=== PATIENT | female | born 1990 | race Caucasian/White ===

== ENCOUNTER → 2017-09-05 | Outpatient (CLI) | payer BC ==
[~2017-09-05] MED LIST: AMPH5CAP9 PO; BUPR300T55 PO; CITA-156 PO; CLO5 PO; CLON-388 PO; DIA10 PO; FLUO40CA76 PO; HYDR-3074 PO; IBUP-1618 PO; IBUP800T37 PO; LEVE500 PO; LIOT5TAB18 PO; LITH300T18 PO; LITH600C6 PO; LOR05 PO; LOR5/325 PO; LURA20TA PO; MIR15 PO; NORG1TAB76 PO; ONDA4TAB PO; QUE100 PO; VEN75XR PO; VENL75CA58 PO; [UNRECOGNIZED DRUG - OTHER] PO
== END ==
LOC: LAB 15:16
PROVIDERS: ATTEND Nurse Practitioner Psychiatric/Mental Health
DX: Z51.81 Encounter for therapeutic drug level monitoring (principal); Z79.899 Other long term (current) drug therapy
CPT/HCPCS: 36415; 80178; 84443

== ENCOUNTER → 2018-01-17 | Outpatient (CLI) | payer BC ==
[~2018-01-17] MED LIST changes: +BUSP30TA18 PO; +LITH300T5 PO; +OMEP-125 PO; +TRAZ50TA34 PO; +VENL150C3 PO; +[UNRECOGNIZED DRUG - CODE] PO
== END ==
LOC: LAB 12:47
PROVIDERS: ATTEND Orthopaedic Surgery
DX: M25.552 Pain in left hip (principal)
CPT/HCPCS: 36415; 84550; 85027; 85651; 86038; 86140; 86430

== ENCOUNTER 2018-01-18 04:25 | Emergency (ER) | payer BC ==
[~2018-01-18 04:25] MED LIST changes: -BUSP30TA18 PO; -LITH300T5 PO; -OMEP-125 PO; -TRAZ50TA34 PO; -VENL150C3 PO; -[UNRECOGNIZED DRUG - CODE] PO
--- NOTE | 2018-01-18 04:29 | ER Report ---
History and Physical Time Seen By MD: 04:29 HPI/ROS CHIEF COMPLAINT: epigastric pain HISTORY OF PRESENT ILLNESS: PT started yesterday afternoon with epigastic pain that radiates to her back and up her chest. Pain is constant, "intense", achy and sharp. Unable to sleep due to pain. Took motrin but did not help. never had the pain before. not sure if worse with eating or drinking. No change with breathing. denies hx of reflux. Pt denies frequent use of ibuprofen/motrin "maybe monthly for headaches". no change in bm. no vomiting REVIEW OF SYSTEMS: Constitutional: No fever, no chills. Eyes: No discharge. ENT: No sore throat. Cardiovascular: No chest pain, no palpitations. Respiratory: No cough, no shortness of breath. Gastrointestinal: + abdominal pain, no vomiting. Genitourinary: No hematuria. Musculoskeletal: No back pain. Skin: No rashes. Neurological: No headache. Allergies: Coded Allergies: No Known Drug Allergies (Verified , 07/22/16) Home Meds Reported Medications [place] Carbonate (LITHOBID) 300 Mg Tablet.er, 1 TAB PO QPM 01/18/18 [place] Carbonate (LITHOBID) 300 Mg Tablet.er, 2 TAB PO QAM 01/18/18 Trazodone Hcl (TRAZODONE HCL) 50 Mg Tablet, 1-2 TAB PO QHS 01/18/18 Norethindrone-E.estradiol-Iron (Microgestin 24 Fe 1 mg-20 Mcg) 1 Mg-20 Mcg (24)/ 75 Mg (4) Tablet, 1 TAB PO QDAY 01/18/18 Buspirone Hcl (BUSPIRONE HCL) 30 Mg Tablet, 30 MG PO BID, #10 TAB 01/18/18 Venlafaxine Hcl (VENLAFAXINE HCL ER) 150 Mg Cap.er.24h, 2 CAP PO QDAY 01/18/18 Discontinued Reported Medications Venlafaxine Hcl (EFFEXOR XR) 75 Mg Cap.er.24h, 3 TAB PO QDAY 07/22/16 Clonazepam (CLONAZEPAM) 0.5 Mg Tab.rapdis, 0.5 MG PO BID Y for PRN, #6 TAB TAKE ONE TABLET BY MOUTH TWICE A DAY 03/17/14 Discontinued Scripts Ondansetron (ZOFRAN ODT) 4 Mg Tab.rapdis, 4 MG PO Q8H Y for NAUSEA/VOMITING, # 20 TAB.JACQUELINE Prov:REGINALDO NAJERA PA-C 07/22/16 Past Medical/Surgical History Pmhx: Behcets?, anxiety, depression Pshx: neg Reviewed Nurses Notes: Yes Old Medical Records Reviewed: Yes Hx Smoking: No Hx Substance Use Disorder: No Hx Alcohol Use: Yes Constitutional Vital Sign - Last 24 Hours 01/18/18 01/18/18 01/18/18 01/18/18 04:32 04:40 04:52 04:55 Temp 97.8 Pulse 69 64 67 Resp 16 11 7 B/P (MAP) 124/92 121/95 (104) Pulse Ox 97 95 96 O2 Delivery Room Air 01/18/18 01/18/18 01/18/18 01/18/18 05:00 05:10 05:25 05:30 Pulse 84 89 Resp 13 8 B/P (MAP) 119/86 (97) 110/77 (88) Pulse Ox 97 93 01/18/18 05:40 Pulse 72 Pulse Ox 94 Physical Exam General Appearance: The patient is alert, has no immediate need for airway protection and no signs of toxicity. Eyes: Pupils equal and round no pallor or injection, EOMI ENT: no pharyngeal erythema or exudates, Mucous membranes are moist, Respiratory: There are no retractions, lungs are clear to auscultation. Cardiovascular: Regular rate and rhythm. pulses are equal and symmetrical Gastrointestinal: Abdomen is soft with epigastric tenderness, no masses, bowel sounds normal, no guarding, no rigidity or rebound Neurological: Cranial nerves II-XII grossly intact, no sensory or motor loss Skin: Warm and dry, no rashes. Musculoskeletal: Neck is supple non tender, no vertebral tenderness Extremities are nontender, nonswollen and have full range of motion. DIFFERENTIAL DIAGNOSIS: After history and physical exam differential diagnosis was considered for peptic ulcer, gerd, cholecysitis, colitis, pancreatitis Medical Decision Making Data Points Result Diagram: 01/18/1844001/18/18440 Laboratory Hematology Test 01/18/18 04:41 Red Blood Count 4.90 M/uL (4.17-5.56) Mean Corpuscular Volume 93.4 fL (80.0-96.0) Mean Corpuscular Hemoglobin 32.9 pg (26.0-33.0) Mean Corpuscular Hemoglobin Concent 35.3 g/dL (32.0-36.0) Red Cell Distribution Width 12.9 % (11.5-14.5) Mean Platelet Volume 7.4 fL (7.2-11.1) Neutrophils (%) (Auto) 86.4 % (39.4-72.5) Lymphocytes (%) (Auto) 8.9 % (17.6-49.6) Monocytes (%) (Auto) 3.6 % (4.1-12.4) Eosinophils (%) (Auto) 0.7 % (0.4-6.7) Basophils (%) (Auto) 0.4 % (0.3-1.4) Nucleated RBC Relative Count (auto) 0.0 /100WBC Neutrophils # (Auto) 10.0 K/uL (2.0-7.4) Lymphocytes # (Auto) 1.0 K/uL (1.3-3.6) Monocytes # (Auto) 0.4 K/uL (0.3-1.0) Eosinophils # (Auto) 0.1 K/uL (0.0-0.5) Basophils # (Auto) 0.0 K/uL (0.0-0.1) Nucleated RBC Absolute Count (auto) 0.00 K/uL Sodium Level 134 mmol/L (137-145) Potassium Level 3.7 mmol/L (3.5-5.0) Chloride Level 99 mmol/L (98-107) Carbon Dioxide Level 24 mmol/L (22-31) Blood Urea Nitrogen 13 mg/dl (7-18) Creatinine 0.90 mg/dl (0.52-1.04) Glomerular Filtration Rate Calc > 60.0 Random Glucose 103 mg/dl (75-110) Calcium Level 9.3 mg/dl (8.4-10.2) Total Bilirubin 0.3 mg/dl (0.2-1.3) Aspartate Amino Transf (AST/SGOT) 24 U/L (0-35) Alanine Aminotransferase (ALT/SGPT) 24 U/L (0-56) Alkaline Phosphatase 53 U/L (0-126) Total Protein 7.9 g/dl (6.3-8.2) Albumin 4.6 g/dl (3.5-5.0) Lipase 123 U/L (23-300) Human Chorionic Gonadotropin, Qual Negative (NEGATIVE) Helicobacter pylori IgG Antibody Negative (NEGATIVE) Chemistry Test 01/18/18 04:41 White Blood Count 11.5 k/uL (4.5-11.0) Red Blood Count 4.90 M/uL (4.17-5.56) Hemoglobin 16.2 g/dL (12.0-16.0) Hematocrit 45.8 % (34.0-47.0) Mean Corpuscular Volume 93.4 fL (80.0-96.0) Mean Corpuscular Hemoglobin 32.9 pg (26.0-33.0) Mean Corpuscular Hemoglobin Concent 35.3 g/dL (32.0-36.0) Red Cell Distribution Width 12.9 % (11.5-14.5) Platelet Count 332 K/uL (150-450) Mean Platelet Volume 7.4 fL (7.2-11.1) Neutrophils (%) (Auto) 86.4 % (39.4-72.5) Lymphocytes (%) (Auto) 8.9 % (17.6-49.6) Monocytes (%) (Auto) 3.6 % (4.1-12.4) Eosinophils (%) (Auto) 0.7 % (0.4-6.7) Basophils (%) (Auto) 0.4 % (0.3-1.4) Nucleated RBC Relative Count (auto) 0.0 /100WBC Neutrophils # (Auto) 10.0 K/uL (2.0-7.4) Lymphocytes # (Auto) 1.0 K/uL (1.3-3.6) Monocytes # (Auto) 0.4 K/uL (0.3-1.0) Eosinophils # (Auto) 0.1 K/uL (0.0-0.5) Basophils # (Auto) 0.0 K/uL (0.0-0.1) Nucleated RBC Absolute Count (auto) 0.00 K/uL Glomerular Filtration Rate Calc > 60.0 Calcium Level 9.3 mg/dl (8.4-10.2) Total Bilirubin 0.3 mg/dl (0.2-1.3) Aspartate Amino Transf (AST/SGOT) 24 U/L (0-35) Alanine Aminotransferase (ALT/SGPT) 24 U/L (0-56) Alkaline Phosphatase 53 U/L (0-126) Total Protein 7.9 g/dl (6.3-8.2) Albumin 4.6 g/dl (3.5-5.0) Lipase 123 U/L (23-300) Human Chorionic Gonadotropin, Qual Negative (NEGATIVE) Helicobacter pylori IgG Antibody Negative (NEGATIVE) ED Course/Re-evaluation Clinical Indication for ER IV: IV Access ED Course Pt has improvement of pain with the GI Cocktail but it is not gone. 01/18/2018 6:01:33 am PT labs are stable. Will treat for possible gerd/pud. 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 will have her follow up with surgery for scope and further evaluation. Decision to Disposition Date: Jan 18, 2018 Decision to Disposition Time: 06:02 Depart Departure Latest Vital Signs Vital Signs Date Time Temp Pulse Resp B/P (MAP) Pulse Ox O2 Delivery O2 Flow Rate FiO2 01/18/18 05:40 72 94 01/18/18 05:30 110/77 (88) 01/18/18 05:25 8 01/18/18 04:32 97.8 Room Air Impression: Primary Impression: Epigastric abdominal pain Additional Impression: Gastritis Condition: Improved Disposition: HOME OR SELF-CARE Referrals: TRES MILAN MD (PCP) TRES CRANE MD 5 Days New Scripts Omeprazole (OMEPRAZOLE) 20 Mg Capsule. 1 CAP PO QDAY, #30 CAP 1 Refill Prov: COLTEN GIBBS V DO 01/18/18 Departure Forms: ER Transition Record, Medications Reconciliation, Off Work/ School Form, School or Work Release?: Work Number of days to be released: 1 Patient Portal Information Patient Instructions: Gastritis (GEN) Additional Instructions: Stay away from aspirin, motrin (advil, ibuprofen, alieve) and all NSAID products. Omeprazole once every day (script sent to [facility]). It may take a day or so for this to help improve your pain. You may use TUMs (as per over the counter instructions) for pain Follow up with Dr. Crane to schedule a scope of your esophagus and stomach for further evaluation of ulcer/reflux Return as needed Problem Qualifiers Additional Impression: Gastritis Gastritis type: unspecified gastritis Chronicity: acute Gastritis bleeding : without bleeding Qualified Codes: K29.00 - Acute gastritis without bleeding COLTEN GIBBS DO Jan 18, 2018 04:29
[2018-01-18] MEDS ORDERED: ATRO/SCOPOL/HYOSCY/PB 5 ML ELX PO ONE (04:40)
[2018-01-18] MEDS ORDERED: MAG HYD/AL HYD/SIMETH 30ML UDC PO ONE (04:40)
[2018-01-18] MEDS ORDERED: LIDOCAINE 2% VISC SLN 15ML UDC PO ONE (04:40)
[2018-01-18] MEDS ORDERED: FAMOTIDINE(*) 20MG/50ML PREMIX 50 ML IVPB ONE (04:40)
[2018-01-18] MEDS ORDERED: BUSP30TA18 PO (04:41)
[2018-01-18] MEDS ORDERED: [UNRECOGNIZED DRUG - CODE] PO (04:41)
[2018-01-18] MEDS ORDERED: LITH300T5 PO ×2 (04:41)
[2018-01-18] MEDS ORDERED: VENL150C3 PO (04:41)
[2018-01-18] MEDS ORDERED: TRAZ50TA34 PO (04:41)
[2018-01-18 04:47] LABS: PLATELET COUNT, AUTOMATED 332 K/uL (150-450)
[2018-01-18 06:00] VITALS: BP 117/94
[2018-01-18] MEDS ORDERED: PANTOPRAZOLE SOD 40 MG TABEC PO ONE (06:05)
[2018-01-18] MEDS ORDERED: OMEP-125 PO (06:08)
== END 2018-01-18 06:24 | disposition home or self-care (01) ==
LOC: ER 04:28
DX: K29.00 Acute gastritis without bleeding (principal)
CPT/HCPCS: 83690; 84703; 85025; 86677; 96374; 99283; J3490; 82040; 82247; 82310; 82374; 82435; 82565; 82947; 84075; 84132; 84155; 84295; 84450; 84460; 84520

== ENCOUNTER → 2018-04-10 | Outpatient (CLI) | payer BC ==
[~2018-04-10] MED LIST changes: +BUSP30TA18 PO; +LITH300T5 PO; +OMEP-125 PO; +TRAZ50TA34 PO; +VENL150C3 PO; +[UNRECOGNIZED DRUG - CODE] PO
[2018-04-10 13:53] LABS: PLATELET COUNT, AUTOMATED 345 K/uL (150-450)
== END ==
LOC: LAB 13:28
PROVIDERS: ATTEND Nurse Practitioner Psychiatric/Mental Health
DX: Z00.00 Encounter for general adult medical examination without abnormal findings (principal)
CPT/HCPCS: 36415; 80178; 82040; 82247; 82310; 82374; 82435; 82565; 82947; 84075; 84132; 84155; 84295; 84443; 84450; 84460; 84520; 85025

== ENCOUNTER → 2018-08-22 | Outpatient (CLI) | payer BC ==
[2018-08-22 10:50] LABS: PLATELET COUNT, AUTOMATED 397 K/uL (150-450)
== END ==
LOC: LAB 10:28
PROVIDERS: ATTEND Nurse Practitioner Psychiatric/Mental Health
DX: Z00.00 Encounter for general adult medical examination without abnormal findings (principal); Z79.899 Other long term (current) drug therapy
CPT/HCPCS: 36415; 80178; 82040; 82247; 82310; 82374; 82435; 82565; 82947; 84075; 84132; 84155; 84295; 84443; 84450; 84460; 84520; 85025